=== PATIENT | female | born 1980 | race Asian ===

== ENCOUNTER 2018-02-21 05:15 | Inpatient (IN) | payer OTHER ==
[~2018-02-21] VITALS: Ht 170.2 cm; Wt 91.6 kg
[2018-02-21] MEDS ORDERED: LACTATED RINGERS 1,000 ML IV SCH (05:51)
[2018-02-21] MEDS ORDERED: CEFAZOLIN IV ONE (05:55)
[2018-02-21] MEDS ORDERED: CITRIC ACID/SODIUM CITRATE 30 ML UDC PO SCH (05:55)
[2018-02-21] MEDS ORDERED: LACTATED RINGERS IV ONE (05:55)
[2018-02-21 06:19] LABS: BASOPHILS % (AUTO) 0.3 % (0.0-2.0); EOSINOPHILS # (AUTO) 0.1 K/uL (0-0.4); EOSINOPHILS % (AUTO) 1.6 % (0.0-4.0); HEMOGLOBIN 13.7 g/dL (12.0-16.0); LYMPHOCYTES # (AUTO) 2.1 K/uL (2.5-16.5); LYMPHOCYTES % (AUTO) 24.4 % (20.5-51.1); MEAN CORPUSCULAR HEMOGLOBIN 30 pg (27-31); MEAN CORPUSCULAR HGB CONC 33 g/dL (33-37); MEAN CORPUSCULAR VOLUME 89.9 fL (80-94); MONOCYTES # (AUTO) 0.8 K/uL (0.8-1.0); MONOCYTES % (AUTO) 9.6 % (1.7-9.3); NEUTROPHILS # (AUTO) 5.5 K/uL (1.8-7.7); NEUTROPHILS % (AUTO) 64.1 % (42.2-75.2); PLATELET COUNT (AUTO) 174 K/uL (140-450); RED BLOOD CELL COUNT(AUTO) 4.56 MIL/uL (4.20-5.40); RED CELL DISTRIBUTION WIDTH 14.1 % (11.6-13.7); WHITE BLOOD COUNT (AUTO) 8.5 K/uL (4.8-10.8)
[2018-02-21] MEDS ORDERED: HYDROcodone/APAP 5/325 MG 1 TAB TAB PO PRN (06:25)
[2018-02-21] MEDS ORDERED: TRIMETHOBENZAMIDE 200 MG/2 ML SYR IM PRN (06:25)
[2018-02-21] MEDS ORDERED: TEMAZEPAM 15 MG CAP PO PRN (06:25)
[2018-02-21] MEDS ORDERED: SIMETHICONE 80 MG TAB.CHEW PO PRN (06:25)
[2018-02-21] MEDS ORDERED: MEASLES, MUMPS, AND RUBELLA 1 VIAL SQVAC PRN (06:25)
[2018-02-21] MEDS ORDERED: METHYLERGONOVINE 0.2 MG/ML AMP IM PRN (06:25)
[2018-02-21] MEDS ORDERED: oxyCODONE/APAP 5/325 MG 1 TAB TAB PO PRN (06:25)
[2018-02-21] MEDS ORDERED: IBUPROFEN 800 MG TAB PO PRN (06:25)
[2018-02-21] MEDS ORDERED: FERR-252 PO (06:27)
[2018-02-21] MEDS ORDERED: PREN-546 PO (06:27)
[2018-02-21 06:31] VITALS: BP 120/68
[2018-02-21 06:54] LABS: ALBUMIN 2.4 g/dL (3.4-5.0); ANION GAP 13.3 (8-16); CARBON DIOXIDE 21.2 mmol/L (21-32); CREATININE 0.7 mg/dL (0.6-1.3); POTASSIUM 3.5 mmol/L (3.5-5.1); TOTAL BILIRUBIN 0.4 mg/dL (0.0-1.0)
[2018-02-21] MEDS ORDERED: MORPHINE PRES FREE 2 MG/2 ML 2 mL UD SYRINGE ONE (07:07)
[2018-02-21] MEDS ORDERED: fentaNYL 0.05 MG/ML VIAL ONE (07:07)
[2018-02-21] MEDS ORDERED: BUPIVACAINE/DEXT 0.75% SPINAL 2 ML AMP INJ ONE (07:07)
[2018-02-21] MEDS ORDERED: CEFAZOLIN SODIUM 2 GM/D5W PM 50 ML IV SCH (07:10)
[2018-02-21] MEDS ORDERED: CITRIC ACID/SODIUM CITRATE 30 ML UDC ONE (07:12)
[2018-02-21] MEDS ORDERED: ePHEDrine 50 MG/ML VIAL IV ONE (07:12)
[2018-02-21] MEDS ORDERED: TRIAMCINOLONE 40 MG/ML 5ML VIAL ONE (07:20)
[2018-02-21] MEDS ORDERED: OXYTOCIN 10 UNITS/ML VIAL ONE (07:20)
[2018-02-21 07:32] LABS: APPEARANCE,URINE SL CLOUDY (CLEAR); BILIRUBIN,URINE NEGATIVE (NEGATIVE); BLOOD, URINE NEGATIVE (NEGATIVE); COLOR,URINE YELLOW (YELLOW); LEUKOCYTE ESTERASE ,URINE NEGATIVE (NEGATIVE); NITRITE, URINE NEGATIVE (NEGATIVE); UGLUCOSE NEGATIVE (NEGATIVE)
[2018-02-21 07:33] LABS: RBC,URINE 0-5 (RARE) /HPF (0-5); WBC,URINE 0-5 (RARE) /HPF (0-5)
[2018-02-21] MEDS ORDERED: NALOXONE 0.4 MG/ML VIAL IVP PRN ×3 (07:40)
[2018-02-21] MEDS ORDERED: ONDANSETRON 4 MG/2 ML VIAL IVP PRN ×2 (07:40)
[2018-02-21] MEDS ORDERED: KETOROLAC 60 MG/2 ML VIAL IM PRN (07:40)
[2018-02-21] MEDS ORDERED: NALBUPHINE 10 MG/ML AMP IVP PRN (07:40)
[2018-02-21] MEDS ORDERED: diphenhydrAMINE 50 MG/ML VIAL IVP PRN (07:40)
[2018-02-21] MEDS: OXYTOCIN 20 UNITS in LACTATED RINGERS 1,000 ML IV SCH ×3 (08:24→17:03)
[2018-02-21] MEDS ORDERED: OXYTOCIN 20 UNITS/LR PREMIX 1,000 ML IV ONE (08:33)
--- NOTE | 2018-02-21 08:57 | NUR ---
PATIENT HAS BEEN SCREENED AND CATEGORIZED LOW NUTRITION RISK. PATIENT WILL BE SEEN WITHIN 7 DAYS OF ADMISSION. 02/27/[address]
[2018-02-21] MEDS ORDERED: diphenhydrAMINE 50 MG/ML VIAL ONE (09:02)
[2018-02-21] MEDS: KETOROLAC 30 MG/ML VIAL IVP PRN ×2 (12:12→19:51)
[2018-02-21] MEDS: DOCUSATE SOD/SENNA 50/8.6 MG 1 TAB PO SCH (21:12)
[2018-02-22] MEDS ORDERED: OXYTOCIN 20 UNITS/LR PREMIX 1,000 ML IV ONE (01:28)
[2018-02-22] MEDS: OXYTOCIN 20 UNITS in LACTATED RINGERS 1,000 ML IV SCH (01:31)
[2018-02-22] MEDS ORDERED: TEMAZEPAM 15 MG CAP PO PRN (02:00)
[2018-02-22] MEDS ORDERED: oxyCODONE/APAP 5/325 MG 1 TAB TAB PO PRN (02:00)
[2018-02-22] MEDS: IBUPROFEN 800 MG TAB PO PRN ×2 (04:54→09:56)
[2018-02-22 07:49] LABS: BASOPHILS % (AUTO) 0.1 % (0.0-2.0); EOSINOPHILS # (AUTO) 0.1 K/uL (0-0.4); EOSINOPHILS % (AUTO) 1.1 % (0.0-4.0); HEMATOCRIT 38.1 % (36-48); HEMOGLOBIN 12.8 g/dL (12.0-16.0); LYMPHOCYTES # (AUTO) 1.6 K/uL (2.5-16.5); LYMPHOCYTES % (AUTO) 15.9 % (20.5-51.1); MEAN CORPUSCULAR HEMOGLOBIN 30 pg (27-31); MEAN CORPUSCULAR HGB CONC 34 g/dL (33-37); MEAN CORPUSCULAR VOLUME 90.8 fL (80-94); MONOCYTES # (AUTO) 0.7 K/uL (0.8-1.0); MONOCYTES % (AUTO) 6.4 % (1.7-9.3); NEUTROPHILS # (AUTO) 7.8 K/uL (1.8-7.7); NEUTROPHILS % (AUTO) 76.5 % (42.2-75.2); PLATELET COUNT (AUTO) 126 K/uL (140-450); RED CELL DISTRIBUTION WIDTH 14.4 % (11.6-13.7); WHITE BLOOD COUNT (AUTO) 10.3 K/uL (4.8-10.8)
[2018-02-22] MEDS: HYDROcodone/APAP 5/325 MG 1 TAB TAB PO PRN (19:57)
[2018-02-22] MEDS: DOCUSATE SOD/SENNA 50/8.6 MG 1 TAB PO SCH (21:04)
[2018-02-23] MEDS: HYDROcodone/APAP 5/325 MG 1 TAB TAB PO PRN (06:33)
[2018-02-24 14:36] LABS: RAPID PLASMA REAGIN NON-REACTIVE (Non Reactiv)
== END 2018-02-23 14:00 | disposition home or self-care (01) | DRG 540 ==
LOC: MLD 05:15 → MFCC 09:06
PROVIDERS: ADMIT Obstetrics & Gynecology; ATTEND Obstetrics & Gynecology
PROC: 10D00Z1 Extraction of Products of Conception, Low, Open Approach (ICD-10-PCS; principal; 2018-02-21 07:00)
DX: O34.211 Maternal care for low transverse scar from previous cesarean delivery (principal); O24.429 Gestational diabetes mellitus in childbirth, unspecified control; O69.81X0 Labor and delivery complicated by cord around neck, without compression, not applicable or unspecified; Z37.0 Single live birth; Z3A.38 38 weeks gestation of pregnancy; Z28.82 Immunization not carried out because of caregiver refusal
CPT/HCPCS: 36415; 80053; 81001; 85025; 86592; 86886; 86900; 86901; J0690; J1200; J1885; J2270; J2590; J3010; J3301; J3490; J7120